=== PATIENT | female | born 1975 | race Two or more races ===

== ENCOUNTER → 2024-05-19 | Day surgery (SDC) | payer OTHER ==
[2024-05-12 14:38] LABS: Urine Bacteria None Seen /hpf (None Seen)
[2024-05-12 14:44] LABS: Basophils # (auto) 0 10 ^3/uL (0-0.2); Basophils % (auto) 0.6 % (0.0-2.0); Eosinophils # (auto) 0.1 10 ^3/uL (0-0.8); Eosinophils % (auto) 1.7 % (0.0-7.0); Hematocrit 40.3 % (36.0-46.0); Hemoglobin 12.8 g/dL (12.2-16.2); Lymphocytes # (auto) 1.5 10 ^3/uL (0.4-5.4); Lymphocytes % (auto) 25.1 % (10.0-50.0); Mean Corpuscular Hemoglobin 27.9 pg (28.0-32.0); Mean Corpuscular Hgb Conc. 31.9 g/dL (32.0-36.0); Mean Corpuscular Volume 87.4 fL (80.0-100.0); Monocytes # (auto) 0.5 10 ^3/uL (0-1.3); Monocytes % (auto) 8.3 % (0.0-12.0); Neutrophils # (auto) 3.9 10 ^3/uL (1.6-8.6); Neutrophils % (auto) 64.3 % (37.0-80.0); Nucleated Red Blood Cells % 0.1 %; Platelet Count (auto) 262 10^3/uL (140-450); Red Blood Cells 4.61 10^6/uL (4.0-5.20); Red Cell Distribution Width 19.3 % (11.8-14.3); White Blood Cell 6.1 10^3/uL (4.4-10.8)
[2024-05-12 15:00] LABS: Urine Blood Negative /uL (Negative); Urine Clarity Clear (Clear); Urine Color Colorless (Yellow); Urine Protein, UAD Negative (Negative); Urine Specific Gravity 1.007 (1.001-1.035); Urine Squamous Epithelial Cell FEW /hpf (<5); Urine Urobilinogen Normal (Negative); Urine WBC < 1 /HPF (0-5)
[2024-05-12 15:03] LABS: INR 0.97 (0.9-1.15); Partial Thromboplastin Time 29.5 SEC (24.5-34.5); Prothrombin Time 10.3 sec (9.3-11.8)
[2024-05-12 15:07] LABS: Alanine Aminotransferase 32 U/L (7-40); Albumin 4.8 g/dL (3.2-4.8); Alkaline Phosphatase 90 U/L (46-116); Anion Gap 9 (5-15); Aspartate Aminotransferase 28 U/L (13-40); BUN/Creatinine Ratio 18.2 (10.0-20.0); Bilirubin, Total 0.4 mg/dL (0.2-1.0); Blood Urea Nitrogen 12 mg/dL (9-23); Calcium 9.7 mg/dL (8.7-10.4); Carbon Dioxide 26 mmol/L (20-31); Chloride 106 mmol/L (98-107); Glucose 89 mg/dL (74-106); Potassium 4.7 mmol/L (3.5-5.1); Sodium 141 mmol/L (136-145); Total Protein 7.6 g/dL (5.7-8.2)
[~2024-05-19] VITALS: Ht 162.6 cm; Wt 77.1 kg
[~2024-05-19] MED LIST: BERB500C PO; BIOT50007 PO; CHOL20TA PO; LIDOCAINE 1% INJ PF 5ML AMP ONE; LOSA-535 PO; NUTRTAB41 PO; PROPOFOL 10 MG/ML 20 ML IV ONE
--- NOTE | 2024-05-19 10:14 | DVHOP2 ---
Operative Report DATE OF OPERATION: 05/19/24 PROCEDURE: Colonoscopy with cold biopsy. PREOPERATIVE INDICATION: The patient is a 49 -year-old female undergoing colonoscopy for colon cancer screening with slight change in bowel habits and intermittent loose stools POSTOPERATIVE DIAGNOSES: 1. Trace to 1+ internal hemorrhoids otherwise normal examination up to the cecum and terminal ileum PROCEDURE PERFORMED BY: Kierra Soler M.D. SCOPE: Olympus videocolonoscope. ASA CLASS: 2. PREOPERATIVE MEDICATIONS: Mac sedation, Jerel Pérez PROCEDURE IN DETAIL: After obtaining an informed consent, the patient was placed on left lateral decubitus position. She was then sedated with the above medications. A rectal examination was performed that was normal. The colonoscope was then passed through the anus into the rectosigmoid and through the descending, transverse, and ascending colon up to the cecum with visualization of the appendiceal orifice, base of the cecum and the ileocecal valve. The colonoscope was then withdrawn. The distal 5-10 cm of the terminal ileum were normal No polyps masses or lesions were seen. There was no colitis. There was no diverticular disease. Random colon biopsies were obtained to rule out microscopic colitis. On retroflexion and straight on view she had 1+ internal hemorrhoids The patient tolerated the procedure well without difficulty. WITHDRAWAL TIME: 6 minutes QUALITY OF THE PREP: [place] Bowel Prep score: 9. COMPLICATIONS : None SPECIMENS: Random colon biopsies DISPOSITION: Stable D/C to home PLAN: 1. Repeat colonoscopy base on biopsy result likely in 10 years 2. Resume GI soft diet and advance as tolerated 3. Outpatient follow up with me in 4-6 weeks to review results and discuss further management 4. Local anorectal hemorrhoidal care KIERRA SOLER MD May 19, 2024 10:14
[2024-05-19 11:00] VITALS: BP 117/73; PULSE 59; RESP 15; O2SAT 100
== END | disposition home or self-care (01) ==
LOC: GI 08:07
PROVIDERS: ATTEND Internal Medicine Gastroenterology
DX: R19.4 Change in bowel habit (principal); I10 Essential (primary) hypertension; Z79.899 Other long term (current) drug therapy; Z86.2 Personal history of diseases of the blood and blood-forming organs and certain disorders involving the immune mechanism; Z90.49 Acquired absence of other specified parts of digestive tract; Z98.890 Other specified postprocedural states
CPT/HCPCS: 36415; 45380; 80053; 81001; 84702; 85025; 85610; 85730; 88305; J2704; J7030